=== PATIENT | female | born 1990 | race Caucasian/White ===

== ENCOUNTER 2018-07-10 06:34 | Outpatient (CLI) | payer OTHER | END 2018-07-10 06:35 | disposition home or self-care (01) | LOC: BICULT 06:34 | PROVIDERS: ATTEND Specialist | DX: Z01.411 Encounter for gynecological examination (general) (routine) with abnormal findings (principal); O03.9 Complete or unspecified spontaneous abortion without complication | CPT/HCPCS: 76856; 93976 ==

== ENCOUNTER 2019-12-30 14:41 | Observation (INO) | payer OTHER, SELFPAY ==
[2019-12-30 15:09] LABS: #Basophils 0.1 thou/uL (0.0-0.2); #Eosinphils 0.2 thou/uL (0.0-0.7); #Lymphocytes 2.9 thou/uL (1.20-3.40); #Monocytes 0.7 thou/uL (0.11-0.59); #Neutrophils 7.9 thou/uL (1.40-6.50); %Basophils 0.7 % (0.0-1.0); %Lymphocytes 24.6 % (21.0-51.0); %Monocytes 6.2 % (0.0-10.0); %Neutrophils 66.6 % (42.0-75.0); Hemoglobin 12.3 g/dL (12.0-16.0); Mean Corpuscular HGB CONC 34.3 g/dL (32.0-36.0); Mean Corpuscular Hemoglobin 32.3 pg (27.0-31.0); Mean Corpuscular Volume 94.1 fL (78.0-98.0); Mean Platelet Volume 7.8 fL (7.4-10.4); Platelet Count 257 thou/uL (130-400); RBC Distribution Width 10.5 % (11.5-14.5); Red Blood Cell (RBC) Count 3.82 mill/uL (4.20-5.40); White Blood Cell (WBC) Count 11.8 thou/uL (4.8-10.8)
[2019-12-30 15:33] LABS: ALT (SGPT) 35 U/L (8-55); AST (SGOT) 20 U/L (5-34); Alkaline Phosphatase 55 U/L (40-110); Anion Gap 11 mmol/L (10-20); BUN (Urea Nitrogen) 8 mg/dL (7.0-18.7); Bilirubin, Total 0.2 mg/dL (0.2-1.2); Calc. Creatinine Clearance 0 mL/min (70-130); Calcium 9.2 mg/dL (7.8-10.44); Carbon Dioxide 26 mmol/L (22-29); Chloride 104 mmol/L (98-107); Estimated GFR-MDRD Greater than 90; Globulin 2.4 g/dL (2.4-3.5); Glucose 74 mg/dL (70-105); Lipase 21 U/L (8-78); Potassium 3.8 mmol/L (3.5-5.1); Protein, Total 6.4 g/dL (6.0-8.3); Sodium 137 mmol/L (136-145)
[2019-12-30] MEDS ORDERED: Ondansetron PF 4 MG/2 ML Vial ONE (16:02)
[2019-12-30 16:18] LABS: Pregnancy Test - Urine (BHCG) POSITIVE (Negative); Pregu Control Background? CLEAR/WHITE (CLR/WHITE); Pregu Control Bar Appear? YES (CONTROL BAR); Specific Gravity 1.021 (1.002-1.036)
[2019-12-30 16:21] LABS: Bacteria/HPF None Seen HPF (None Seen); Bilirubin Negative (Negative); Blood, Urine Negative (Negative); Clarity Clear (Clear); Glucose, Urine (Dipstick) Normal (Negative); Leukocyte 75 Leu/uL (Negative); Nitrite Negative (Negative); Protein, Urine (Dipstick) Negative (Neg-Trace); RBC/HPF 0-3 HPF (0-3)
--- NOTE | 2019-12-30 16:21 | ULT ---
Sonogram right upper quadrant HISTORY: Right upper quadrant pain. FINDINGS: Echogenic stones in the dependent portion the gallbladder lumen. Gallbladder is incompletel y distended. No gallbladder wall thickening or pericholecystic fluid. Common duct is 0.4 cm. Liver unremarkable without focal mass or intrahepatic biliary dilatation. No free fluid. IMPRESSION: Cholelithiasis. No evidence of acute biliary obstruction.
[2019-12-30] MEDS ORDERED: Morphine 4 MG/ML VIAL ONE ×2 (17:25→19:38)
[2019-12-30] MEDS ORDERED: Ondansetron ODT 4 MG TAB SL PRN (21:21)
[2019-12-30] MEDS ORDERED: Ondansetron PF 4 MG/2 ML Vial IVP PRN (21:21)
[2019-12-30] MEDS ORDERED: Sodium Chloride 0.9% 1,000 ML IV SCH (21:21)
[2019-12-30] MEDS: Morphine 4 MG/ML VIAL SLOW IVP PRN (22:20)
[2019-12-31] MEDS: Morphine 4 MG/ML VIAL SLOW IVP PRN ×5 (00:16→08:05)
--- NOTE | 2019-12-31 00:26 | CON ---
DATE OF CONSULTATION: 12/30/2019 HISTORY OF PRESENT ILLNESS: The patient is a 29-year-old G3, P2 female with an intrauterine approximately 16 weeks gestation, presenting to the emergency room with right upper quadrant pain. The patient has a known diagnosis of gallstones. Given her presentation today, decision was made by General Surgery to remove her gallbladder tomorrow morning. The patient denies she has had any complications with this thus far apart from this abdominal pain since October. She denies any vaginal bleeding, any uterine contractions, leakage of fluid. PAST MEDICAL HISTORY: Negative. PAST SURGICAL HISTORY: She has had 2 prior C-sections and she has had her appendix removed. She has had some leg surgery. ALLERGIES: CODEINE. SOCIAL HISTORY: Denies drug, alcohol, or tobacco use. CURRENT MEDICATIONS: She takes: 1. Zofran p.r.n. 2. Tylenol. 3. vitamins. BLOOD TYPE: The patient reports is O-positive. REVIEW OF SYSTEMS: Per HPI. PHYSICAL EXAMINATION: VITAL SIGNS: Blood pressure is 107/59, temperature 98.4, pulse of 84, respiratory rate of 16, saturating 99% on room air. GENERAL: She appears to be in no acute distress. She is alert, oriented, cooperative, and pleasant to interact with. ABDOMEN: Soft, nontender. EXTREMITIES: Nontender and nonedematous. heart tracing reported. heart tones 146. LABORATORY DATA: Labs showed white count of 11.8, hemoglobin 12.3, hematocrit 35.9, and platelets of 257,000. AST of 20, ALT of 35, T bilirubin 0.2, lipase of 21, potassium 3.8. ASSESSMENT AND PLAN: The patient is a 29-year-old female with an intrauterine approximately 16 weeks gestation with documented gallstones that have given her significant problems over the last several weeks. The patient has been evaluated by General Surgery, has plans to take her in the morning for laparoscopic removal of the gallbladder. We did discuss with the patient that generally speaking the second trimester is the best time for abdominal surgery to occur should it be necessary, that the risks to the fetus is very low. Plan is to get heart tones before and after surgery and did stress that any of the risks associated with surgery in general that have been discussed by Dr. Gifford and the presence of an enlarged uterus may make potential complications more possible though given the mass effect of the uterus and displacement of other organs. The patient has expressed understanding and desires to proceed with surgical path, which Dr. Gifford will be managing. We discussed the anesthesia and is generally safe for . Given a routine surgical series of events tomorrow, the patient likely will be discharged home tomorrow and will be asked to follow up with her primary OB, Dr. Balderas, as scheduled. Job ID: [id number]
[2019-12-31] MEDS ORDERED: Ondansetron PF 4 MG/2 ML Vial SLOW IVP PRN (06:24)
[2019-12-31 08:08] LABS: ALT (SGPT) 40 U/L (8-55); AST (SGOT) 27 U/L (5-34); Albumin 3.7 g/dL (3.5-5.0); Alkaline Phosphatase 48 U/L (40-110); Anion Gap 11 mmol/L (10-20); BUN (Urea Nitrogen) 7 mg/dL (7.0-18.7); Bilirubin, Total Less than 0.2 mg/dL (0.2-1.2); Calc. Creatinine Clearance 167 mL/min (70-130); Calcium 8.9 mg/dL (7.8-10.44); Carbon Dioxide 21 mmol/L (22-29); Chloride 108 mmol/L (98-107); Estimated GFR-MDRD Greater than 90; Globulin 2.8 g/dL (2.4-3.5); Glucose 77 mg/dL (70-105); Lipase 11 U/L (8-78); Potassium 3.9 mmol/L (3.5-5.1); Protein, Total 6.5 g/dL (6.0-8.3); Sodium 136 mmol/L (136-145)
[2019-12-31] MEDS ORDERED: Morphine 4 MG/ML VIAL SLOW IVP PRN (08:51)
[2019-12-31] MEDS ORDERED: traMADol HCl 50 MG TAB PO PRN ×2 (08:51)
[2019-12-31] MEDS ORDERED: Acetaminophen 325 MG TAB PO PRN ×2 (08:51)
[2019-12-31] MEDS ORDERED: Morphine 2 MG/ML SYRINGE SLOW IVP PRN (08:51)
[2019-12-31] MEDS ORDERED: HYDROcodone/Acetaminophen 5/325 mg Tablet PO PRN ×2 (08:52)
[2019-12-31] MEDS ORDERED: CEFAZOLIN 2 GM in Premix Bag 1 BAG IVPB SCH (09:00)
[2019-12-31] MEDS ORDERED: D5 1/2 NS w/20 mEq KCL 1,000 ML IV SCH (09:00)
--- NOTE | 2019-12-31 09:11 | HP ---
CHIEF COMPLAINT: Abdominal pain. HISTORY OF PRESENT ILLNESS: Ms. Obrien is a 29-year-old woman who is 16 weeks , who has been having right upper quadrant abdominal pain and nausea since October. She was diagnosed with gallstones by her [facility] and an attempt at conservative management with low-fat diet was attempted. However, her pain has continued to worsen and got to the point last night where she had to come to the emergency room, even with IV pain medication, her pain did not resolve, so she has decided to proceed with laparoscopic cholecystectomy for symptomatic relief. Her has been progressing normally. She has not had any bleeding or contractions. She is a G3, P2, healthy young woman. PAST MEDICAL HISTORY: None. FAMILY HISTORY: Gallstones in her father. SOCIAL HISTORY: She does not smoke, drink, or use illicit drugs. PAST SURGICAL HISTORY: Laparoscopic appendectomy, , removal of a growth on her right lower leg, and tonsillectomy. REVIEW OF SYSTEMS: Ten system review of systems is negative except per HPI. She has not had any fevers, chills, jaundice, or icterus. She has an intolerance to codeine. OUTPATIENT MEDICATIONS: Include, 1. Zofran. 2. Tylenol. 3. vitamins. PHYSICAL EXAMINATION: VITAL SIGNS: Temperature 98.9, heart rate 71, respirations 20, 99% saturated on room air, blood pressure 96/59. GENERAL: Reveals a healthy young woman, in no acute distress. She is not jaundiced or icteric. She is not flushed or toxic. HEENT: Unremarkable. NECK: Supple without lymphadenopathy or thyroid nodules. HEART: Regular in its rate and rhythm without murmurs, rubs, or gallops. LUNGS: Clear to auscultation bilaterally. ABDOMEN: Soft and gravid. Her uterus is palpable below the umbilicus. She has healed laparoscopic incisions and Pfannenstiel incision. She is tender to palpation in the right upper quadrant greater than epigastrium, otherwise nontender to palpation. No rigidity, rebound, or guarding. No palpable mass, hernias. EXTREMITIES: Warm and well perfused without edema. NEURO: No focal deficits. PSYCHIATRIC: Alert, oriented, and appropriate. LABORATORY DATA: White count is 11.8, hematocrit 35, platelets 257. Electrolytes are unremarkable. LFTs and lipase are normal. Ultrasound images of the gallbladder revealed cholelithiasis with a normal caliber bile duct and no gallbladder wall thickening or pericholecystic fluid. ASSESSMENT: Cholelithiasis and chronic cholecystitis with worsening symptoms. The patient is in her second trimester and does not feel that she will be able to tolerate her symptoms for the remainder of her . I explained laparoscopic cholecystectomy is generally considered to be safe in the second trimester and I have recommended that we proceed. Inherent risks of surgery include, but are not limited to, bleeding, infection, risks of anesthesia, damage to nearby structures including bowel, bile duct, blood vessels, and uterus and miscarriage. These risks are all very small. However, the patient and her understand and accept these risks and wished to proceed. Dr. Lozada of [facility] has seen the patient and heart tones will be checked before and after the surgery. All of her questions were answered. Antibiotics will be ordered on-call to the operating room. Job ID: [id number]
[2019-12-31] MEDS ORDERED: SUGAMMADEX SODIUM 200 MG/2 ML VIAL ONE (09:46)
[2019-12-31] MEDS ORDERED: Fentanyl 100 MCG/2 ML VIAL ONE ×4 (09:46→12:12)
[2019-12-31] MEDS ORDERED: Bupivacaine 0.25% HCL 30 ML VIAL ONE (10:13)
[2019-12-31] MEDS ORDERED: Lidocaine 1% w/Epinephrine 1:100K 20 ML VIAL ONE (10:13)
--- NOTE | 2019-12-31 10:34 | PDOC.OP ---
Operative Note - Operative Note Operative Note: DATE OF PROCEDURE: 12/31/2019 PROCEDURES: Laparoscopic cholecystectomy. SURGEON: Margaret Gifford M.D. PREOPERATIVE DIAGNOSIS: Cholelithiasis, cholecystitis POSTOPERATIVE DIAGNOSIS: Cholelithiasis, cholecystitis FINDINGS: Distended gallbladder with large stone. Benign appearing liver mass medial to gallbladder bed. HISTORY: Patient with 16 week and symptoms of biliary colic failing conservative management. Laparoscopic cholecystectomy was recommended for symptomatic relief. Preoperative LFTs were normal and bile duct was normal caliber on preoperative imaging. PROCEDURE: After informed consent was obtained and appropriate preoperative antibiotics were administered, the patient was taken to the operating room and placed in the supine position and general endotracheal anesthesia was administered. The stomach was decompressed with an OG tube and the abdomen was prepped and draped in standard sterile fashion. Local anesthesia was infused to the skin and subcutaneous tissues at the umbilical level. A transverse skin incision was made. The fascia was elevated and incised and stay sutures placed and the peritoneum grasped, elevated and incised under direct vision. A 5 cm trocar was placed and carbon dioxide insufflated to a pressure of 15 which the patient tolerated well. The abdominal cavity was carefully examined. There was no evidence of trocar injury. Local anesthesia was infused to the skin and subcutaneous tissues at the epigastric, right upper quadrant, and right lateral abdominal sites and trocars were placed under direct vision of the laparoscope. The fundus of the gallbladder was grasped and retracted superiorly. The infundibulum was grasped and retracted laterally. The serosa was stripped inferiorly at the level of the neck of the gallbladder exposing the cystic duct and artery which were traced clearly to their insertion in the gallbladder. Critical view of safety was obtained and the cystic duct and artery were clipped and divided between clips. The gallbladder was then dissected free of the gallbladder bed using hook electrocautery. Prior to complete removal of the gallbladder from the gallbladder bed, the area of the cystic duct and artery stumps was examined. The clips were in good position completely across these structures and there was no bleeding and no leakage of bile. The gallbladder was then placed into an EndoCatch bag and drawn out through the epigastric incision after crushing and removing a large stone. The epigastric trocar was replaced and the operative site easily irrigated to clear. The patient was incidentally noted to have a small, benign appearing mass on the underside of the liver between the gallbladder bed and the falciform ligament, which was photographed but not biopsied due to bleeding risk. The epigastric trocar was removed and the fascia reappoximated under direct laparoscopic vision with a 0 Vicryl suture on a GraNee needle in a [id number] manner with excellent technical result. The camera was moved to the epigastric position and the fascia at the umbilicus closed with 0 Vicryl on a GraNee needle under direct laparoscopic vision with excellent result. The stay sutures were secured over this. The right upper quadrant and right lateral abdominal trocars were removed and hemostasis verified. Carbon dioxide gas was allowed to desufflate through the epigastric trocar which was then removed. The skin incisions were closed with 4-0 subcuticular Monocryl sutures and Dermabond dressings were placed. The patient was extubated and taken to the recovery room in good condition. There were no complications. ESTIMATED BLOOD LOSS: Minimal. SPECIMEN : Gallbladder and contents.
[2019-12-31] MEDS ORDERED: Rocuronium Bromide 10 MG/ML (10ML VIAL) ONE (10:45)
[2019-12-31] MEDS ORDERED: Lidocaine 1% PF 5 ML VIAL ONE (10:45)
[2019-12-31] MEDS ORDERED: Glycopyrrolate 0.2 MG/ML 5 ML SYRINGE ONE (10:45)
[2019-12-31] MEDS ORDERED: EPHEDRINE 25 MG/5 ML SYRINGE ONE (10:45)
[2019-12-31] MEDS ORDERED: Dexamethasone 20 MG/5 ML VIAL ONE (10:45)
[2019-12-31] MEDS ORDERED: Ondansetron PF 4 MG/2 ML Vial ONE (10:45)
[2019-12-31] MEDS ORDERED: PROPOFOL 200 MG/20 ML VIAL ONE (10:45)
[2019-12-31] MEDS ORDERED: diphenhydrAMINE 50 MG/ML VIAL ONE ×2 (10:45→12:24)
[2019-12-31] MEDS ORDERED: Promethazine HCl 25 MG/ML VIAL IM PRN (12:22)
[2019-12-31] MEDS ORDERED: Promethazine HCl 25 MG/ML VIAL SLOW IVP PRN (12:22)
[2019-12-31] MEDS ORDERED: Ondansetron HCl/PF 4 MG/2 ML Vial IVP PRN (12:22)
[2019-12-31] MEDS ORDERED: Morphine 4 MG/ML VIAL ONE (12:35)
[2019-12-31 13:09] VITALS: TEMP 97.5
[2019-12-31 14:11] VITALS: BP 105/57
[2019-12-31] MEDS ORDERED: FLU VACC QS2019-20(6MOS UP)/PF 60 MCG/0.5 ML SYRINGE IM ONE (21:00)
== END 2019-12-31 14:48 | disposition home or self-care (01) ==
LOC: ERS 14:41 → 3SE 20:34
PROVIDERS: ADMIT Surgery; ATTEND Surgery
PROC: 0FT44ZZ Resection of Gallbladder, Percutaneous Endoscopic Approach (ICD-10-PCS; principal; 2019-12-31)
DX: O99.613 Diseases of the digestive system complicating pregnancy, third trimester (principal); K80.10 Calculus of gallbladder with chronic cholecystitis without obstruction; O34.219 Maternal care for unspecified type scar from previous cesarean delivery; Z3A.16 16 weeks gestation of pregnancy; Z79.899 Other long term (current) drug therapy; Z88.5 Allergy status to narcotic agent
CPT/HCPCS: 36415; 76705; 80053; 81003; 81015; 81025; 83690; 85025; 88304; 96361; 96372; 96374; 96375; 96376; G0378; J0500; J0690; J1100; J1200; J2001; J2270; J2405; J2704; J3010; S0020

== ENCOUNTER 2020-03-10 06:37 | Observation (INO) | payer OTHER ==
[2020-03-10] MEDS ORDERED: Magnesium Sulfate 20 gm/500 ml 20 GM/500 ML BAG ONE (06:44)
[2020-03-10] MEDS ORDERED: Ondansetron PF 4 MG/2 ML Vial ONE (06:51)
[2020-03-10] MEDS ORDERED: hydrALAZINE 20 MG/ML VIAL SLOW IVP PRN ×2 (07:28)
[2020-03-10] MEDS ORDERED: Lactated Ringer's 1,000 ML IV SCH (07:30)
[2020-03-10] MEDS: Betamet Acet/Betamet Na Ph 30 MG/5 ML VIAL IM SCH (07:30)
[2020-03-10] MEDS ORDERED: Promethazine HCl 25 MG in Sodium Chloride 0.9% 50 ML IVPB PRN (07:31)
[2020-03-10] MEDS ORDERED: Calcium Gluconate 4.6 MEQ in Sodium Chloride 0.9% 100 ML IVPB PRN (07:36)
[2020-03-10] MEDS ORDERED: Magnesium Sulfate 20 gm/500 ml 20 GM/500 ML BAG IVPB SCH (07:45)
[2020-03-10] MEDS ORDERED: Magnesium Sulfate 20 GM/WATER 500 ML BAG IVPB SCH (07:45)
[2020-03-10] MEDS ORDERED: Magnesium Sulfate 4 GM in Sodium Chloride 0.9% 250 ML 250 ML IVPB SCH (07:45)
[2020-03-10] MEDS ORDERED: Iopamidol 300 61% 100 ML VIAL FS ONE (08:24)
[2020-03-10 08:29] LABS: Hemoglobin 12.1 g/dL (12.0-16.0); Mean Corpuscular Volume 94.3 fL (78.0-98.0); Mean Platelet Volume 8.9 fL (7.4-10.4); Platelet Count 209 thou/uL (130-400); RBC Distribution Width 10.6 % (11.5-14.5); Red Blood Cell (RBC) Count 3.67 mill/uL (4.20-5.40); White Blood Cell (WBC) Count 16.4 thou/uL (4.8-10.8)
[2020-03-10 08:51] LABS: INR-International Normal Ratio 0.9; PTT 22.3 SEC (22.9-36.1); Prothrombin Time 12.3 SEC (12.0-14.7)
[2020-03-10 09:08] LABS: Syphilis Antibody Nonreactive (Nonreactive); Syphilis Antibody Index 0.03 S/CO (<1.00 Non-Reactive)
[2020-03-10] MEDS: Butorphanol Tartrate 1 MG/ML VIAL SLOW IVP PRN ×2 (09:13→09:39)
[2020-03-10 09:15] LABS: HBSAg Index 0.18 S/CO (0-0.99); Hep B Surf Ag Non-Reactive S/CO (NonReactive)
[2020-03-10 09:20] LABS: Bilirubin Negative (Negative); Blood, Urine 2+ (Negative); Clarity Clear (Clear); Glucose, Urine (Dipstick) Normal (Negative); Leukocyte 250 Leu/uL (Negative); Mucous/LPF 1+ LPF (<2+); Nitrite Negative (Negative); Protein, Urine (Dipstick) 20 mg/dL (Neg-Trace); RBC/HPF Greater than 50 HPF (0-3); Squamous Epithelial 0-3 HPF (0-3); Urobilinogen 3 mg/dL (Less than 2)
[2020-03-10 09:25] LABS: Bacteria/HPF None Seen HPF (None Seen)
[2020-03-10 09:27] LABS: Amphetamine Not Detected (NotDetected); Barbiturates Screen Not Detected (NotDetected); Benzodiazepine Screen Not Detected (NotDetected); Cocaine Metabolite Screen Not Detected (NotDetected); Medtox Control Line Valid? VALID (VALID); Medtox Reader # READER 1; Methadone Not Detected (NotDetected); Methamphetamine Not Detected (NotDetected); Opiate Screen Not Detected (NotDetected); Oxycodone Screen Not Detected (NotDetected); Phencyclidine (PCP) Not Detected (NotDetected); THC/Cannabinoid Screen Not Detected (NotDetected); Tricyclic Screen Not Detected (NotDetected)
--- NOTE | 2020-03-10 09:28 | HP ---
PRIMARY CLINICAL NURSING MANAGER: Karie Balderas MD CHIEF COMPLAINT: Left lower quadrant pain. HISTORY OF PRESENT ILLNESS: The patient is a 29-year-old G3, P2 female with an intrauterine at 26 weeks and 3 days by EMS for acute onset severe left lower quadrant pain. The patient for about 15 minutes had unrelenting pain. She described as sharp with having severe pressure in her bottom. She was able to stay still enough for us to get heart tones initially and was able to see the baby had heart tones in the 130s. The patient reports that it began at about 5 o'clock and woke her up from her sleep. She denies any similar pains previous to this during this . She reports she had a gallbladder removed about a month ago and had an excision of a mole, also removed recently. The patient reports severe constipation and has been having problems of nausea with this . The patient denies fever, fall, headache, chest pain, shortness of breath, any new rashes, hip problems, knee problems, muscle weakness, vaginal bleeding or leakage of fluid. PAST MEDICAL HISTORY: Negative. PAST SURGICAL HISTORY: She has had 2 prior C-sections. Her gallbladder removed. She also at her previous visit reports she had appendix removed and has had surgery on her leg. ALLERGIES: CODEINE. SOCIAL HISTORY: Denies drug, alcohol, or tobacco use; however, the patient has had some issues with tramadol being prescribed at multiple locations by multiple providers and has currently been told that she can only get this prescribed by one provider due to recent surgical and other issues and currently denies being on tramadol. Blood type at a previous admission, O positive. REVIEW OF SYSTEMS: Per HPI. OB LABORATORY DATA: Unavailable. PHYSICAL EXAMINATION: VITAL SIGNS: On arrival, blood pressure 126/77, heart rate of 99, respiratory rate of 20. GENERAL: She on my initial arrival was writhing, unable to sit still. She was going from standing to sitting to rolling due to the pain on her left side. The patient was given 50 of Demerol and 25 of Phenergan, which was helpful. The patient's pain is primarily in her left lower quadrant, though she does report some tenderness throughout her abdomen. We were unable to palpate any significant contractions. CERVIX: Cervix is closed and thick and high. EXTREMITIES: Nontender, nonedematous. HEART: Regular. LUNGS: Clear. heart tracing shows the fetus with a baseline in the 130s with minimal to moderate long-term variability, no accelerations, no decelerations. On tocometer, we do not see any contraction pattern. On bedside ultrasound, there appears to me a retroplacental clot in the lower left bleeding edge that appears to be developing and growing over the two views that I had one with the bedside ultrasound p.r.n. Labor and Delivery, and the second with a formal ultrasound consult. On the second view, it appears to be now extending behind the amnion toward the cervix anteriorly and then superiorly along the edge of the placenta with a small portion appearing to protrude behind the body of the placenta. There is no blood flow in this area. ASSESSMENT AND PLAN: The patient is a 29-year-old G3, P2 female with an intrauterine at 26 weeks and 3 days, who I have admitted to the hospital for concerns of abruption. Fetus is stable at the moment. We have put her on magnesium for neuro protection. She has a 4 g bolus with 2 g an hour. She has also been given steroids for lung maturity. I have typed and crossed her 2 units and have a coagulation profile pending including a KB stain and fibrinogen. Her primary OB, Dr. Balderas has been updated, who is taking over care. Given her history, she also has a drug screen pending. However, she has received Demerol prior to that. The patient at this time is much more comfortable in the bed and is cooperative. Job ID: [id number]
--- NOTE | 2020-03-10 10:06 | ULT ---
LIMITED OB ULTRASOUND: HISTORY: Possible placental abruption. No vaginal bleeding. Pelvic pain and abdominal pain. FINDINGS: A single live intrauterine gestation is seen with measurements corresponding to an estimated gestatio nal age of 27 weeks 1 day and MAURICIO at 06/08/2020. The estimated weight measures 1064 gm (2 pound s 6 ounces). This corresponds to 90% by Hadlock criteria. measurements are as follows: BPD 6.56 cm, 26 weeks 3 days HC 25.17 cm, 27 weeks 2 days AC 23.54 cm, 27 weeks 6 days FL 4.98 cm, 26 weeks 6 days heart rate measures 133 b.p.m. JANEY measures 12.4 cm. Placenta is anteriorly located without e vidence of placenta previa. No retroperitoneal hematoma is seen. IMPRESSION: Single live intrauterine of 27 weeks 1 day and estimated date of delivery at 06/08/2020. POS: MZA
[2020-03-10] MEDS ORDERED: Morphine 4 MG/ML VIAL SLOW IVP SCH (10:15)
--- NOTE | 2020-03-10 10:21 | PDOC.EVN ---
Event Note - Event Note Event Note: Formal obstetrical ultrasound shows no retroplacental hematoma. Normal amniotic fluid. Vertex. Coagulation studies are normal-Fibrinogen is 500+ and reassuring for no occult abruption like bleed. No vaginal bleeding. FHT's remain reassuring at 130's. No deceleration. TOCO with no regular contractions or hypertonus. Cath UA with rbc's and wbc's. suggestive of uti. Renal u/s ordered to look for high grade hydronephrosis as etiology for pain...Mild left hydro noted. Moderate right sided. Urine culture sent. Ceftriaxone will be started. Will change to morphine for pain control since patient states this has worked better for her in the past. Stop magnesium for neuroprotection since concern for abruption much less now due to recent lab results, ultrasound and clinical findings...
--- NOTE | 2020-03-10 11:22 | ULT ---
Exam: Bilateral renal ultrasound HISTORY: patient. Pain. Evaluate for renal calculi. Left-sided pain. 27 weeks gestation. COMPARISON: None FINDINGS: Limitations: Patient was in a considerable amount of pain. Unable to keep still, limiting evaluation lie: Vertex Right kidney: Normal cortical echotexture. Mild to moderate hydronephrosis Right kidney measurements: 4.6 x 11.5 x 5.3 cm. Left kidney: Normal cortical echotexture. No hydronephrosis. Questionable left pelvic dilatation with out calyceal dilatation. Left kidney measurements 6.4 x 11.8 x 6.0 cm. Urinary bladder: Normal mucosa. Neither ureteral jet is appreciated at this time IMPRESSION: 1. Mild to moderate right-sided hydronephrosis. 2. Neither ureteral jet isn't appreciated at this time.
[2020-03-10] MEDS: cefTRIAXone\\ROCEPHIN 2 GM in Sodium Chloride 0.9% 100 ML IVPB SCH (11:30)
[2020-03-10] MEDS ORDERED: Morphine 4 MG/ML VIAL SLOW IVP PRN (11:55)
--- NOTE | 2020-03-10 12:05 | PDOC.EVN ---
Event Note - Event Note Event Note: Still having llq pain requiring significant amounts of morphine. Will perform single shot ivp to better evaluate for possible ureteral obstruction.
[2020-03-10 12:29] LABS: ALT (SGPT) 10 U/L (8-55); AST (SGOT) 15 U/L (5-34); Albumin 3.6 g/dL (3.5-5.0); Alkaline Phosphatase 113 U/L (40-110); Anion Gap 16 mmol/L (10-20); BUN (Urea Nitrogen) 6 mg/dL (7.0-18.7); Bilirubin, Total 0.4 mg/dL (0.2-1.2); Calc. Creatinine Clearance 0 mL/min (70-130); Calcium 8.7 mg/dL (7.8-10.44); Carbon Dioxide 17 mmol/L (22-29); Chloride 107 mmol/L (98-107); Estimated GFR-MDRD Greater than 90; Globulin 3.4 g/dL (2.4-3.5); Glucose 95 mg/dL (70-105); Potassium 3.4 mmol/L (3.5-5.1); Sodium 137 mmol/L (136-145)
[2020-03-10] MEDS ORDERED: Morphine 4 MG/ML VIAL ONE ×2 (13:16→15:29)
--- NOTE | 2020-03-10 14:22 | RAD ---
Exam: IVP WITHOUT TOMOGRAMS: HISTORY: 27 week patient. Left flank pain. FINDINGS: Initial zig zag stitcher abdomen and pelvic radiograph demonstrate a single fetus in a transverse presentation, head to the maternal left. Cholecystomy clips are identified. There is a punctate 1-2 mm calculus in the left hemipelvis which is nonspecific. On the 10 minute images, there is enhancement of both kidneys. There is contrast opacifying a moderat e to severely dilated right renal pelvis and intrarenal collecting system. There is no evidence of contrast in the left intrarenal collecting system. On the 20 minute images, contrast opacifies a moderate to severely distended right intrarenal and ext rarenal collecting system. There continues to be lack of contrast in the left intra and extrarenal collecting system. IMPRESSION: 1. Moderate to severe right-sided hydronephrosis and hydroureter which is presumed to be due to lie. 2. Persistent lack of excretion of contrast into the left intra and extrarenal collecting system, imp lying a high-grade obstruction. The exact level is uncertain. The a forementioned 2 mm calculus in the left hemipelvis is not felt to be the exact etiology. Retrograde opacification may be beneficial. Results study discussed with Dr. Balderas on 03/10/2020 at 2:22 PM. CODE CR. Transcribed Date/Time: 03/10/2020 3:12 PM
[2020-03-10] MEDS ORDERED: Ondansetron PF 4 MG/2 ML Vial IVP PRN (14:57)
[2020-03-10] MEDS ORDERED: Naloxone HCl 0.4 mg/ml Vial IV PRN (14:57)
[2020-03-10] MEDS ORDERED: HYDROmorphone 10 mg/100 ml CADD IVPB PRN (14:57)
[2020-03-10] MEDS ORDERED: Zolpidem Tartrate 5 MG TAB PO PRN (14:57)
[2020-03-10] MEDS ORDERED: Promethazine HCl 25 MG/ML VIAL IM PRN (14:57)
[2020-03-10] MEDS ORDERED: diphenhydrAMINE 50 MG/ML VIAL IVP PRN (14:57)
[2020-03-10] MEDS ORDERED: diphenhydrAMINE 25 MG CAP PO PRN (14:57)
[2020-03-10] MEDS ORDERED: diphenhydrAMINE 50 MG/ML VIAL IM PRN (14:57)
--- NOTE | 2020-03-10 14:57 | PDOC.EVN ---
Event Note - Event Note Event Note: Single shot IVP shows high grade obstruction on left kidney. Moderate to severe hydronephrosis on right. I called Dr Haywood , urologist production aide. He recommends follow up KUB q hour x 2 to help better determine area of blockage prior to him seeing patient. I will consult anesthesia service for additional help with pain management. Creatinine was 0.64 on cmp..Continue antibiotic coverage with rocephin. Will give one dose of flomax 0.4 mg to see if this helps ureter to relax and stone passage.
[2020-03-10] MEDS ORDERED: Tamsulosin HCl 0.4 MG CAP PO SCH (15:00)
[2020-03-10] MEDS ORDERED: Communication Order-Pharmacy FS SCH (15:00)
[2020-03-10] MEDS: Ondansetron PF 4 MG/2 ML Vial IVP PRN ×2 (15:00→22:35)
[2020-03-10] MEDS ORDERED: Betamet Acet/Betamet Na Ph 30 MG/5 ML VIAL ONE (15:29)
[2020-03-10] MEDS ORDERED: Butorphanol Tartrate 1 MG/ML VIAL ONE (15:29)
--- NOTE | 2020-03-10 17:22 | RAD ---
RADIOGRAPH ABDOMEN 1 VIEW: 03/10/20 at 3:28 p.m. HISTORY: 29-year-old female with left obstructive uropathy, sudden onset severe left flank pain. COMPARISON: Final intravenous urogram image of 03/10/2020 at 2 p.m.. FINDINGS: This approximately two hour delayed KUB finally demonstrates faint contrast material excreted into mo derately dilated left renal collecting system and moderately dilated left ureter. The contrast is vis ualized in the distal left ureter in the pelvis, but the most distal portion and the UVJ are obscured by dense excreted contrast material in the urinary bladder. The oil and gas superintendent view for the IVU earlier demon strates a tiny 2 mm calcification in the inferior portion of the left hemipelvis, which could be an o bstructing calculus at the UVJ. Again noted is the denser excreted contrast material in the moderately dilated right renal collecting system and right ureter. Cholecystectomy clips. Fetus in cephalic/transverse lie, with head overlapp ing upper sacrum at midline, and spine to maternal right lower quadrant. Normal bowel gas pattern. IMPRESSION: 1. Evidence for obstructive uropathy at the distal left ureter, possibly at ureterovesical junct ion, possibly by 2 mm calculus at the ureterovesical junctiuon. 2. Right sided hydronephrosis of . 3. Late second or early third trimester intrauterine gestation. POS: JIN
[2020-03-10 17:32] VITALS: BMI 25.0
[2020-03-10] MEDS ORDERED: Witch Hazel-Glycerin 1 EACH JAR TOP PRN (19:45)
[2020-03-10] MEDS ORDERED: Preparation H Ointment 57 gram tube TOP PRN (19:46)
--- NOTE | 2020-03-10 20:20 | CON ---
DATE OF CONSULTATION: 03/10/2020 REASON FOR CONSULTATION: Severe left-sided flank pain. HISTORY OF PRESENT ILLNESS: Ms. Ponce is a 29-year-old female who is currently approximately 26 weeks . She has had some mild left-sided flank pain until this morning when it became severe. She has since been on Labor and Delivery required large volumes of pain medication for managing the pain. Over the last 2 hours, it has improved. She underwent a renal ultrasound, that demonstrates a right-sided hydronephrosis, but no significant left-sided hydronephrosis. She then underwent a limited IVP, demonstrating delayed nephrogram on the left, consistent with obstruction. She denies any fevers or chills. She has had nausea and vomiting. She has a prior history of stone at the age of 10, which she passed spontaneously and did not require a surgical intervention. She denies any gross hematuria. PAST MEDICAL HISTORY: No chronic medical problems. PAST SURGICAL HISTORY: 1. Cholecystectomy during this . 2. Tonsillectomy and adenoidectomy. 3. Appendectomy. 4. Excision of a mole. ALLERGIES: TYLENOL NO. 3, IS NOT WELL-TOLERATED. SOCIAL HISTORY: Denies excessive alcohol use. Denies smoking. She has 2 other children at home. She is . REVIEW OF SYSTEMS: RESPIRATORY: No shortness of breath. CARDIOVASCULAR: No chest pain or palpitations. GASTROINTESTINAL: Denies chronic constipation or diarrhea. GENITOURINARY: Please see history of present illness. PHYSICAL EXAMINATION: GENERAL: She is awake and alert. She is in mild distress at this time. VITAL SIGNS: Temperature 97.9, blood pressure 138/82, pulse 82, respiratory rate 16. CHEST: Clear to auscultation. ABDOMEN: Gravid uterus. No peritoneal signs. EXTREMITIES: No edema. IMPRESSION: Left renal colic and delayed nephrogram, consistent with renal colic as the source of her symptoms. No obvious stone has been seen. Her pain was unbearable until recently. Now, although still present, it is quite manageable. We have discussed management options, which include observation with hopes of spontaneous passage of a presumed ureteral stone versus proceeding with ureteral stent placement. The pros and cons of these approaches have been discussed with her. She has opted to proceed with observation at present with the option to undergo ureteral stent placement if pain escalates. PLAN: 1. IV hydration. 2. Cystoscopy and left ureteral stent placement with possible left ureteroscopy if pain again becomes unmanageable. Job ID: [id number]
[2020-03-10] MEDS: Lactated Ringer's 1,000 ML IV SCH ×2 (22:45→23:38)
[2020-03-10] MEDS: L&D-Morphine 4 MG/ML VIAL IVP SCH ×2 (23:39→23:40)
[2020-03-11] MEDS: Lactated Ringer's 1,000 ML IV SCH ×2 (00:20→07:10)
--- NOTE | 2020-03-11 07:30 | PDOC.BPN ---
- Brief Progress Note S: Doing much better this am. Pain markedly improved. Urine strained with only sediment so far, no stones. Had some back pain overnight requiring ORE TRIMMER but otherwise, need for pain medication way down. Denies any other complaints today. O: AFVSS Gen - AAO, NAD Abd - soft, gravid, NTTP Ext - no edema A/P: 29 y/o at 26w4d with L sided kidney stone, clinically much improved. Will await recommendations from Dr. Cohn with Urology but anticipate d/c later today.
[2020-03-11] MEDS ORDERED: Prenatal Vitamin 1 TAB PO SCH (09:00)
[2020-03-11] MEDS: cefTRIAXone\\ROCEPHIN 2 GM in Sodium Chloride 0.9% 100 ML IVPB SCH (09:24)
[2020-03-11] MEDS: Betamet Acet/Betamet Na Ph 30 MG/5 ML VIAL IM SCH (09:26)
[2020-03-11] MEDS: Ondansetron PF 4 MG/2 ML Vial IVP PRN (09:41)
[2020-03-11 09:50] VITALS: BP 99/57; TEMP 98.6
--- NOTE | 2020-03-11 11:51 | RAD ---
EXAM: XR Abdomen 1 View/KUB PROVIDED CLINICAL HISTORY: Follow-up evaluation after IVP. COMPARISON: IVP on 03/10/2020 as well as one view abdomen on 03/10/2020 FINDINGS: Again noted is evidence of an intrauterine gestation in cephalic presentation. Surgical clips again o verlie the right upper quadrant. Previously noted contrast within the bilateral renal collecting systems, ureters, and in the urinary bladder is no longer visualized on this exam. A tiny calcificati on measuring approximately 2 mm was seen overlying the left hemipelvis on the prior exam. This calcification is not definitely delineated on this exam. No additional suspicious calcifications are identified. Small amount of retained fecal material is seen in the ascending and transverse colon. No other interval change. IMPRESSION: 1. Previously noted contrast in the bilateral renal collecting systems and urinary bladder is no long er visualized on this exam. 2. The previously measured tiny calcification overlying the left hemipelvis is not definitely delinea jayne on this exam. 3. Intrauterine gestation in cephalic presentation.
--- NOTE | 2020-03-11 12:53 | PDOC.EVN ---
Event Note - Event Note Event Note: OB structural iron worker: I have seen the patient at bedside. Her partner was at bedside. She feels better but occasionally still has pelvic pressure "like the stone is moving lower". Dr Ordaz has evaluated the follow up KUB from today and has cleared her for DC if pain os OK. I wrote for tramadol but I believe that requires a triplicate and I do not have any triplicates. I put in an order for tylenol #3 instaed as her "allergy' is that it makes her feel wierd but there is no HX of type 1-IV hypersensitivity by report.
--- NOTE | 2020-03-11 13:11 | PDOC.EVN ---
Event Note - Event Note Event Note: I called the pharmacy here: tramadol is not a triplicate (class IV). Dr Sullivan has written her the med.
--- NOTE | 2020-03-11 13:20 | DIS ---
DATE OF ADMISSION: 03/10/2020 DATE OF DISCHARGE: 03/11/2020 PRINCIPAL DIAGNOSES: 1. Left renal stone. 2. Renal colic. 3. Second trimester (approximately 26 weeks). HOSPITAL COURSE: In brief, this patient arrived with Dr. Lozada on-call. For full details, please see his H and P on March 10. In brief, she presented with severe abdominal pain that was first considered possible abruption; however, after clinical evaluation, the diagnosis was renal colic per intravenous pyelogram. Urology was called and helped to evaluate the patient. The patient did not require stenting during this admission, and on followup KUB, ordered by Urology, on 03/11, it seemed that the stone was having progressed down the tract. On 03/11/2020, I did evaluate the patient at the bedside, and as she felt much better, but still with some mild colic and pelvic pressure (thought to be related to the stone), the decision was made to follow her up as an outpatient. Dr. Haywood did evaluate the patient prior to discharge as well and felt that was a reasonable plan. Again, there was no indication for stenting at this time. She was placed on Rocephin prophylactically during her overnight stay, but she was not sent home on any additional antibiotics. She will follow up on Friday or Friday with her PAINTER [facility] provider, Dr. Balderas. Job ID: [id number]
--- NOTE | 2020-03-12 11:27 | PRG ---
DATE OF SERVICE: 03/11/2020 SUBJECTIVE: Pain is still present, although much improved. She has some oets-ip-iqnxvdch pressure sensation in the left kidney. She has some urinary frequency. She denies any fevers or chills. PHYSICAL EXAMINATION: VITAL SIGNS: Temperature 98.6, blood pressure 99/57, pulse 73, and O2 saturation 99% on room air. ABDOMEN: Soft and nontender. Gravid uterus. No peritoneal signs. DIAGNOSTIC STUDIES: KUB, complete drainage of the left kidney of all contrast. A questionable calcification seen on prior imaging is not clearly seen on this KUB. IMPRESSION: Possible passed left ureter stone. She certainly had obstruction of the left kidney and it seems now that it has resolved. Her pain is much improved. We discussed treatment options at this time. She would like to manage with outpatient medical therapy and avoid surgical therapy if possible. RECOMMENDATIONS: Okay for discharge from urologic standpoint. Job ID: [id number]
== END 2020-03-11 13:35 | disposition home health service (06) ==
LOC: L&D/OP 06:37 → INTOOBSV 07:26 → L&D 07:26 → 3SE 21:02
PROVIDERS: ADMIT Obstetrics & Gynecology; ATTEND Obstetrics & Gynecology
DX: O99.89 Other specified diseases and conditions complicating pregnancy, childbirth and the puerperium (principal); N13.2 Hydronephrosis with renal and ureteral calculous obstruction; Z3A.26 26 weeks gestation of pregnancy; Z88.5 Allergy status to narcotic agent; Z88.6 Allergy status to analgesic agent
CPT/HCPCS: 36415; 59025; 74018; 74410; 76770; 76815; 80053; 80306; 81003; 81015; 83735; 85027; 85384; 85460; 85610; 85730; 86780; 86850; 86900; 86901; 87086; 87340; 96365; 96372; 96375; 96376; 99285; G0378; J0595; J0696; J0702; J2175; J2270; J2405; J3475; J3490; Q9967

== ENCOUNTER 2020-05-10 01:24 | Day surgery (SDC) | payer OTHER ==
[2020-05-10 01:52] VITALS: BMI 29.2
[2020-05-10] MEDS ORDERED: hydrALAZINE 20 MG/ML VIAL SLOW IVP PRN (03:14)
--- NOTE | 2020-05-10 04:00 | PRG ---
DATE OF SERVICE: PRIMARY OB: Karie Balderas MD CHIEF COMPLAINT: Elevated blood pressures. HISTORY OF PRESENT ILLNESS: The patient is a 29-year-old G3, P2 female with an intrauterine at 35 weeks and 1 day gestation, presenting to Labor and Delivery with concerns of elevated blood pressures and visual changes. She reports that she was having severe range pressures with a wrist cuff at home up into the 160s systolic and 100s diastolic. Upon arrival, blood pressures have all been within normal limits. Testing of her cuff here did demonstrate severe range pressures as recorded by her cuff. Again, blood pressures here have been in the 100s to 134 over 60s to 86. Upon arrival to the room, the patient reports her biggest concern was her blood pressure being elevated and knowing that her blood pressures are within normal limits, the patient is comfortable going home and has no other complaints at this time. PAST MEDICAL HISTORY: Kidney stones in this . PAST SURGICAL HISTORY: She has had 2 prior C-sections. She has had a cholecystectomy earlier in this . Appendectomy and surgery on her leg. ALLERGIES: CODEINE-TYLENOL NO. 3. SOCIAL HISTORY: Denies drug, alcohol, or tobacco use. MEDICATIONS: Currently, on tramadol, under the care of Dr. Balderas for tooth pain. OB LABS: Unavailable at time of dictation. REVIEW OF SYSTEMS: Per HPI. PHYSICAL EXAMINATION: VITAL SIGNS: Vital signs during her stay here have been 104 to 134/58 to 86, heart rate in the 70s to 90s to low 100s, respiratory rate 20, and temperature 98.5. GENERAL: She appears to be in no acute distress. She is alert, oriented, cooperative, and pleasant to interact with. HEAD: Normocephalic and atraumatic. LUNGS: Clear to auscultation bilaterally. HEART: Has a regular rate and rhythm. ABDOMEN: Gravid, soft, nontender. EXTREMITIES: Nontender and nonedematous. She has 1+ DTRs. DIAGNOSTIC DATA: heart tracing shows a fetus with a baseline in the 130s with moderate long-term variability, positive 15 x 15 accelerations. Tocometer showing some irritability, but no consistent contraction pattern. ASSESSMENT AND PLAN: The patient is a 29-year-old multiparous female with an intrauterine at 35 weeks, coming in with concerns of elevated blood pressures at home; here, pressures have been all within normal limits, measured over the course of an hour and a half. The patient is being discharged home. She has an appointment on with her primary OB. Fetus has a category 1 tracing and reactive NST. Job ID: [id number]
== END 2020-05-10 03:10 | disposition home or self-care (01) ==
LOC: L&D/OP 01:24
PROVIDERS: ATTEND Obstetrics & Gynecology
DX: O99.89 Other specified diseases and conditions complicating pregnancy, childbirth and the puerperium (principal); R03.0 Elevated blood-pressure reading, without diagnosis of hypertension; H53.9 Unspecified visual disturbance; O34.219 Maternal care for unspecified type scar from previous cesarean delivery; Z3A.35 35 weeks gestation of pregnancy; Z88.5 Allergy status to narcotic agent
CPT/HCPCS: 59025; 99282

== ENCOUNTER 2020-05-25 08:59 | Inpatient (IN) | payer OTHER ==
[2020-05-25 09:46] VITALS: BMI 30.1
[2020-05-25] MEDS ORDERED: Azithromycin 500 MG in Sodium Chloride 0.9% 250 ML 250 ML IVPB SCH (09:47)
[2020-05-25] MEDS ORDERED: Ondansetron PF 4 MG/2 ML Vial IVP PRN ×2 (09:47→15:39)
[2020-05-25] MEDS ORDERED: CEFAZOLIN 2 GM in Premix Bag 1 BAG IVPB SCH (09:47)
[2020-05-25] MEDS ORDERED: Promethazine HCl 25 MG/ML VIAL IM PRN ×2 (09:47→15:39)
[2020-05-25] MEDS ORDERED: hydrALAZINE 20 MG/ML VIAL SLOW IVP PRN ×2 (09:47→12:21)
[2020-05-25] MEDS ORDERED: Bicitra 30 ML UDCUP PO SCH (09:47)
[2020-05-25] MEDS ORDERED: Lactated Ringer's 1,000 ML IV SCH ×2 (09:47)
[2020-05-25 10:02] LABS: Hemoglobin 10.9 g/dL (12.0-16.0); Mean Corpuscular HGB CONC 33.6 g/dL (32.0-36.0); Mean Corpuscular Hemoglobin 29.2 pg (27.0-31.0); Mean Corpuscular Volume 86.7 fL (78.0-98.0); Mean Platelet Volume 8.8 fL (7.4-10.4); Platelet Count 286 thou/uL (130-400); RBC Distribution Width 12.3 % (11.5-14.5); Red Blood Cell (RBC) Count 3.74 mill/uL (4.20-5.40); White Blood Cell (WBC) Count 12.7 thou/uL (4.8-10.8)
[2020-05-25 10:43] LABS: HBSAg Index 0.14 S/CO (0-0.99); Hep B Surf Ag Non-Reactive S/CO (NonReactive); Syphilis Antibody Nonreactive (Nonreactive); Syphilis Antibody Index 0.02 S/CO (<1.00 Non-Reactive)
[2020-05-25] MEDS ORDERED: diphenhydrAMINE 25 MG CAP PO PRN (12:21)
[2020-05-25] MEDS ORDERED: Bisacodyl 10 MG SUPP PR PRN (12:21)
[2020-05-25] MEDS ORDERED: Adacel (T-DAP) 0.5 ML SYRINGE IM ONE (12:21)
[2020-05-25] MEDS ORDERED: Acetaminophen 325 MG TAB PO PRN (12:21)
[2020-05-25] MEDS ORDERED: traMADol HCl 50 MG TAB PO PRN ×2 (12:23)
[2020-05-25] MEDS ORDERED: MORPHINE 5 MG/10 ML PF VIAL ONE (13:29)
[2020-05-25] MEDS ORDERED: PHENYLEPHRINE-NS 100 MCG/ML 10 ML SYRINGE ONE ×2 (13:30→14:56)
[2020-05-25] MEDS ORDERED: Oxytocin 10 UNITS/ML VIAL ONE ×3 (13:48→14:36)
[2020-05-25] MEDS ORDERED: Midazolam HCl 2 mg/2 ml Vial ONE (13:51)
[2020-05-25] MEDS ORDERED: Ibuprofen 800 MG TAB PO SCH (14:00)
[2020-05-25] MEDS ORDERED: Ondansetron PF 4 MG/2 ML Vial ONE (15:07)
[2020-05-25] MEDS ORDERED: Promethazine HCl 25 MG/ML VIAL ONE (15:12)
--- NOTE | 2020-05-25 15:12 | PDOC.OPDEL ---
OB Operative/Delivery Note Delivery Dr/Surgeon: Sherrie Assist: Daniel Pre-Delivery Diagnosis: other (early labor vaginal bleeding prior c/s x2) Procedure/Post Delivery Dx: repeat low transverse CS Weeks gestation: 37 Anesthesia: spinal - Findings A Sex: female Weight: 5 lb 15 oz - 1 min: 8 - 5 min: 9 - Additional Findings/Plan Placenta delivered: manual removal findings: low transverse hysterotomy without extension Estimated blood loss: 550ml Post delivery plan: routine recovery
[2020-05-25] MEDS ORDERED: Ketorolac Tromethamine 30 MG/ML VIAL IVP PRN (15:39)
[2020-05-25] MEDS ORDERED: Naloxone HCl 0.4 mg/ml Vial IV PRN (15:39)
[2020-05-25] MEDS ORDERED: L&D-Morphine 4 MG/ML VIAL SLOW IVP PRN (15:39)
[2020-05-25] MEDS ORDERED: Naloxone HCl 0.4 mg/ml Vial IVP PRN ×2 (15:39)
[2020-05-25] MEDS ORDERED: Promethazine HCl 25 MG SUPP PR PRN (15:39)
[2020-05-25] MEDS ORDERED: diphenhydrAMINE 50 MG/ML VIAL IVP PRN (15:39)
[2020-05-25] MEDS ORDERED: HYDROmorphone 2 MG/ML VIAL SLOW IVP PRN (15:39)
[2020-05-25] MEDS ORDERED: Ondansetron HCl/PF 4 MG/2 ML Vial IVP PRN (15:39)
[2020-05-25] MEDS ORDERED: Ketorolac Tromethamine 30 MG/ML VIAL IVP SCH (15:45)
[2020-05-25] MEDS ORDERED: Communication Order-Pharmacy FS SCH (15:45)
[2020-05-25] MEDS ORDERED: Meperidine HCl/PF 25 MG/ML VIAL ONE ×2 (15:53→16:52)
[2020-05-25] MEDS: Meperidine HCl/PF 25 MG/ML VIAL SLOW IVP PRN ×2 (15:56→16:57)
[2020-05-25] MEDS ORDERED: NS / Oxytocin 40 units/1000ml 0 ML ONE (17:01)
[2020-05-25] MEDS ORDERED: Morphine 4 MG/ML VIAL ONE (17:20)
--- NOTE | 2020-05-25 19:12 | OP ---
DATE OF PROCEDURE: 05/25/2020 PREOPERATIVE DIAGNOSES: 1. A 29-year-old white female, G3, P2, prior x2 with regular contractions. 2. Vaginal bleeding. 3. Early labor. POSTOPERATIVE DIAGNOSES: 1. A 29-year-old white female, G3, P2, prior x2 with regular contractions. 2. Vaginal bleeding. 3. Early labor. PROCEDURES PERFORMED: 1. Repeat low transverse section. 2. Lysis of adhesions. BENCH WORKER HOLLOW HANDLE SURGEON: Armando Sanchez MD with OB hospitalist service. ESTIMATED BLOOD LOSS: 550 mL. ANESTHESIA: Spinal block, requiring repeat spinal block due to inadequate anesthesia with first spinal. COMPLICATIONS: None. FINDINGS: 1. Vigorous female infant, Apgars 8 and 9. weight 5 pounds 5 ounces. Clear amniotic fluid noted. 2. The patient had uterine serosal adhesions to the upper abdominal wall, status post lysis of adhesions and repair. 3. Normal-appearing bilateral adnexa. 4. Clear urine present in Bealsey catheter postprocedure. DISPOSITION: Recovery room, stable. DESCRIPTION OF PROCEDURE: The patient previously received informed consent in regard to surgery. She was taken back to the operating room, where she received a spinal block. She was prepped and draped in usual sterile fashion. Initial spinal test noted her to have sensation below the umbilicus on both sides, and then she was undraped and repeat spinal was performed. Once the spinal was adequate, we placed her back in supine position, prepped and draped her. A Pfannenstiel incision was made down through the previous scar site. Fat was taken down to the fascia. Fascia was nicked in the midline. Fascial incision was extended bilaterally with curved Tinsley scissors. The rectus fascia was dissected superiorly and inferiorly off the rectus muscle bellies. The rectus muscle bellies were divided in midline. There was a serosal sort of adhesions mainly on the left anterior side, and this was carefully taken down layering, it actually appeared to be some of the uterine serosa in the upper midportion of the uterus above the previous hysterotomy site. Once this was taken down, the Dov O retractor was placed. We then took the bladder flap down further to enable a clear area for the hysterotomy. The hysterotomy was extended. The baby was delivered in the vertex presentation. Mouth and nares were bulb suctioned on the abdomen. The amniotic fluid was noted to be clear. Usual cord blood was obtained, and the cord was doubly clamped and cut, baby was handed to the pediatric nurses in attendance. Placenta was then manually extracted. The uterus was externalized and curetted of any remaining placental fragments with a dry laparotomy sponge. The serosal adhesions superior to the hysterotomy site were made hemostatic by continuing pressure with a moist lap sponge. We then closed the hysterotomy incision in running locking fashion with #1 Monocryl. We then placed Allis clamps just over the vertical tear of the serosa of the uterus and this approximated, then I ran a running locking 2-0 chromic suture incorporating some of the myometrium to aid with hemostasis. Hemostasis was confirmed. There were some areas of general ooze in certain places and this was made hemostatic by placing FloSeal and holding pressure for 3 minutes. We rechecked the hemostasis was confirmed. The uterus had been replaced back in the abdomen at this time. The Dov O retractor was then removed. We again inspected the hysterotomy site and hemostasis was confirmed. The muscle bellies were inspected and noted to be hemostatic prior to fascial closure. Fascia was closed with 0 PDS suture to suture x2 in a running continuous fashion. Subcutaneous tissue was irrigated, noted to be hemostatic prior to skin approximation with a 4-0 subcuticular suture with Dermabond. The surgery was terminated. No anesthetic or surgical complications occurred. Job ID: [id number]
[2020-05-25] MEDS ORDERED: Sodium Chloride 0.9% 10 ML ONE (19:19)
[2020-05-25] MEDS: Ibuprofen 800 MG TAB PO SCH (21:51)
[2020-05-26] MEDS ORDERED: Sodium Chloride 0.9% 30 ML ONE (03:00)
[2020-05-26] MEDS: Ibuprofen 800 MG TAB PO SCH ×3 (05:17→20:59)
[2020-05-26] MEDS ORDERED: traMADol HCl 50 MG TAB PO PRN (06:50)
[2020-05-26 07:14] LABS: Hemoglobin 10.4 g/dL (12.0-16.0); Mean Corpuscular HGB CONC 33.5 g/dL (32.0-36.0); Mean Corpuscular Hemoglobin 29.4 pg (27.0-31.0); Mean Corpuscular Volume 87.8 fL (78.0-98.0); Mean Platelet Volume 8.6 fL (7.4-10.4); Platelet Count 281 thou/uL (130-400); RBC Distribution Width 12.1 % (11.5-14.5); Red Blood Cell (RBC) Count 3.53 mill/uL (4.20-5.40); White Blood Cell (WBC) Count 13.1 thou/uL (4.8-10.8)
[2020-05-26] MEDS ORDERED: Acetaminophen 500 MG TAB PO PRN (07:33)
[2020-05-26] MEDS ORDERED: Prenatal Vitamin 1 TAB PO SCH (09:00)
[2020-05-26] MEDS: Simethicone Chewable 80 MG TAB PO PRN ×2 (09:12→20:59)
--- NOTE | 2020-05-26 09:31 | PDOC.PP ---
Post Progress Note Post Day #: 1 Subjective: Complains of pain and request IV morphine but has been seen on the unit ambulating without difficulty or without assistance. Pt refuses toradol. Eating well, voiding well, no other concerns. PO intake tolerated: yes Flatus: yes Ambulation: yes Vital Signs (12 hours) Temp Pulse Resp BP Pulse Ox 05/26/20 08:09 98.1 F 84 20 110/72 99 05/26/20 03:49 97.9 F 93 16 125/76 05/26/20 00:46 98.2 F 81 14 114/68 Weight Weight 170 lb - Physical Examination General: NAD Respiratory: non-labored breathing Abdominal: no distention Neurological: no gross focal deficits Psychiatric: A&Ox3 Result Diagrams: 05/26/20 07:02 Additional Labs: Post Labs Blood Type O POSITIVE 05/25/20 10:20 Hep Bs Antigen Non-Reactive S/CO (NonReactive) 05/25/20 09:50 (1) Status post repeat low transverse section Code(s): Z98.891 - HISTORY OF UTERINE SCAR FROM PREVIOUS SURGERY Status: Acute - Assessment/Plan POD1, history of regular tramadol use in , refusing toradol. Discussed with patient the benefit of oral medication use for pain control and that IV pain med use PRN will 24hours after delivery. Plan to transition to PO meds and today.
[2020-05-26] MEDS: traMADol HCl 50 MG TAB PO PRN ×3 (10:25→22:48)
[2020-05-26] MEDS ORDERED: Sodium Chloride 0.9% 10 ML ONE (12:07)
[2020-05-26] MEDS ORDERED: Ibuprofen 800 MG TAB PO SCH (14:00)
[2020-05-27] MEDS: Ibuprofen 800 MG TAB PO SCH (05:32)
[2020-05-27] MEDS: Simethicone Chewable 80 MG TAB PO PRN (05:32)
[2020-05-27] MEDS: traMADol HCl 50 MG TAB PO PRN (05:33)
--- NOTE | 2020-05-27 07:14 | PDOC.PP ---
Post Progress Note Subjective: Ready to gohome. baby doing well. Tramadol oral working for pain control with motrin. PO intake tolerated: yes Flatus: yes Ambulation: yes Vital Signs (12 hours) Temp Pulse Resp BP Pulse Ox 05/27/20 05:30 98.2 F 95 16 115/67 05/26/20 23:00 98.2 F 75 16 116/82 05/26/20 20:50 97.6 F 82 16 119/76 96 Weight Weight 170 lb - Physical Examination Abdominal: + bowel sounds, no distention, appropriately TTP Result Diagrams: 05/26/20 07:02 Additional Labs: Post Labs Blood Type O POSITIVE 05/25/20 10:20 Hep Bs Antigen Non-Reactive S/CO (NonReactive) 05/25/20 09:50 - Assessment/Plan Post op day #2. Doing well. Ready for discharge. Rx sent. F/u 6 weeks.
[2020-05-27 11:11] VITALS: BP 112/70; TEMP 97.9
== END 2020-05-27 10:45 | disposition home or self-care (01) | DRG 788 ==
LOC: L&D/OP 08:59 → L&D 09:48 → 3SW 18:22
PROVIDERS: ADMIT Obstetrics & Gynecology; ATTEND Obstetrics & Gynecology
PROC: 10D00Z1 Extraction of Products of Conception, Low, Open Approach (ICD-10-PCS; principal; 2020-05-26)
DX: O34.211 Maternal care for low transverse scar from previous cesarean delivery (principal); Z3A.37 37 weeks gestation of pregnancy; Z37.0 Single live birth
CPT/HCPCS: 36415; 51702; 85027; 86780; 86850; 86900; 86901; 87340; 90715; J0456; J0690; J1200; J2175; J2250; J2270; J2274; J2405; J2550; J2590; J7050

== ENCOUNTER 2021-05-10 21:47 | Emergency (ER) | payer OTHER ==
[2021-05-10 22:39] LABS: BHCG - Serum Negative (NEGATIVE); Pregs Control Background? CLEAR/WHITE (CLR/WHITE); Pregs Control Bar Appear? YES (CONTROL BAR)
[2021-05-10 22:40] LABS: #Basophils 0.1 thou/uL (0.0-0.2); #Eosinphils 1.4 thou/uL (0.0-0.7); #Lymphocytes 4.7 thou/uL (1.20-3.40); #Monocytes 0.7 thou/uL (0.11-0.59); %Basophils 0.8 % (0.0-1.0); %Eosinophils 10.1 % (0.0-10.0); %Lymphocytes 33.4 % (21.0-51.0); %Monocytes 5.3 % (0.0-10.0); %Neutrophils 50.4 % (42.0-75.0); Mean Corpuscular HGB CONC 34.8 g/dL (32.0-36.0); Mean Corpuscular Hemoglobin 32.8 pg (27.0-31.0); Mean Corpuscular Volume 94.3 fL (78.0-98.0); Mean Platelet Volume 8.5 fL (7.4-10.4); Platelet Count 239 thou/uL (130-400); RBC Distribution Width 11.2 % (11.5-14.5); Red Blood Cell (RBC) Count 4.59 mill/uL (4.20-5.40); White Blood Cell (WBC) Count 13.9 thou/uL (4.8-10.8)
[2021-05-10 22:46] LABS: Bacteria/HPF Rare-Few HPF (None Seen); Bilirubin Negative (Negative); Blood, Urine Trace (Negative); Clarity Clear (Clear); Glucose, Urine (Dipstick) Normal (Negative); Ketone, Urine Negative (Negative); Leukocyte 25 Leu/uL (Negative); Nitrite Negative (Negative); Protein, Urine (Dipstick) Negative (Neg-Trace); RBC/HPF 0-3 HPF (0-3); Specific Gravity, Urine 1.029 (1.002-1.036)
[2021-05-10 22:55] LABS: ALT (SGPT) 24 U/L (8-55); AST (SGOT) 15 U/L (5-34); Albumin 4.4 g/dL (3.5-5.0); Alkaline Phosphatase 78 U/L (40-110); Anion Gap 15 mmol/L (10-20); BUN (Urea Nitrogen) 14 mg/dL (7.0-18.7); Bilirubin, Total 0.3 mg/dL (0.2-1.2); Calc. Creatinine Clearance 0 mL/min (70-130); Calcium 9.5 mg/dL (7.8-10.44); Carbon Dioxide 21 mmol/L (22-29); Chloride 106 mmol/L (98-107); Globulin 3.1 g/dL (2.4-3.5); Glucose 97 mg/dL (70-105); Lipase 23 U/L (8-78); Potassium 3.9 mmol/L (3.5-5.1); Protein, Total 7.5 g/dL (6.0-8.3); Sodium 138 mmol/L (136-145)
[2021-05-10] MEDS ORDERED: Ketorolac Tromethamine 30 MG/ML VIAL ONE (23:00)
== END 2021-05-10 23:46 | disposition home or self-care (01) ==
LOC: ERS 21:47
DX: R10.31 Right lower quadrant pain (principal); F17.210 Nicotine dependence, cigarettes, uncomplicated
CPT/HCPCS: 36415; 80053; 81003; 81015; 83690; 84703; 85025; 87086; 96372; 99284; J1885

== ENCOUNTER 2023-05-09 16:06 | Emergency (ER) | payer OTHER ==
[2023-05-09] MEDS ORDERED: Ketorolac Tromethamine 30 MG/ML VIAL ONE (16:41)
[2023-05-09] MEDS ORDERED: Ondansetron PF 4 MG/2 ML Vial ONE ×2 (16:41→19:54)
[2023-05-09] MEDS ORDERED: Morphine 4 MG/ML VIAL ONE ×3 (16:41→19:53)
[2023-05-09 16:45] LABS: Bilirubin 1+ (Negative); Blood, Urine 3+ (Negative); CAUTI Indications for Culture Pelvic or flank pain; Glucose, Urine (Dipstick) Normal (Negative); Ketone, Urine Negative (Negative); Leukocyte 25 Leu/uL (Negative); Nitrite Negative (Negative); Protein, Urine (Dipstick) 100 mg/dL (Neg-Trace); RBC/HPF Greater than 50 HPF (0-3); Specific Gravity, Urine 1.033 (1.002-1.036); Squamous Epithelial 21-50 HPF (0-3); Urobilinogen Normal mg/dL (Less than 2); pH, Urine 5.5 (5.0-9.0)
[2023-05-09 16:46] LABS: Bacteria/HPF 1+ HPF (None Seen); Clarity Cloudy (Clear)
[2023-05-09 16:47] LABS: Pregnancy Test - Urine (BHCG) Negative (Negative); Pregu Control Background? CLEAR/WHITE (CLR/WHITE); Pregu Control Bar Appear? YES (CONTROL BAR); Specific Gravity 1.033 (1.002-1.036); Urine Culture Reflex Yes Yes
[2023-05-09 16:52] LABS: #Eosinphils 0.1 thou/uL (0.0-0.7); #Monocytes 0.6 thou/uL (0.11-0.59); #Neutrophils 14.2 thou/uL (1.40-6.50); %Basophils 0.2 % (0.0-1.0); %Eosinophils 0.7 % (0.0-10.0); %Lymphocytes 9.7 % (21.0-51.0); %Monocytes 3.8 % (0.0-10.0); Hemoglobin 13.7 g/dL (12.0-16.0); Mean Corpuscular HGB CONC 32.9 g/dL (32.0-36.0); Mean Corpuscular Hemoglobin 30.9 pg (27.0-31.0); Mean Corpuscular Volume 93.9 fl (78.0-98.0); Mean Platelet Volume 10.4 fL (7.4-10.4); Platelet Count 200 10x3/uL (130-400); RBC Distribution Width 12.3 % (11.5-14.5); Red Blood Cell (RBC) Count 4.43 mill/uL (4.20-5.40); White Blood Cell (WBC) Count 16.7 10x3/uL (4.8-10.8)
[2023-05-09 17:16] LABS: ALT (SGPT) 11 U/L (8-55); AST (SGOT) 16 U/L (5-34); Albumin 4.2 g/dL (3.5-5.0); Alkaline Phosphatase 74 U/L (40-110); Anion Gap 14 mmol/L (10-20); BUN (Urea Nitrogen) 13 mg/dL (7.0-18.7); Bilirubin, Total 0.3 mg/dL (0.2-1.2); Calc. Creatinine Clearance 0 mL/min (70-130); Calcium 8.6 mg/dL (7.8-10.44); Carbon Dioxide 18 mmol/L (22-29); Chloride 112 mmol/L (98-107); Estimated GFR 84; Globulin 2.8 g/dL (2.4-3.5); Glucose 97 mg/dL (70-105); Potassium 4.1 mmol/L (3.5-5.1); Sodium 140 mmol/L (136-145)
[2023-05-09] MEDS ORDERED: cefTRIAXone (ROCEPHIN) 2 GM VIAL ONE (17:34)
[2023-05-09] MEDS ORDERED: HYDROmorphone 0.5 MG/0.5 ML SYRINGE ONE (18:50)
== END 2023-05-09 20:27 | disposition home or self-care (01) ==
LOC: ERS 16:06
DX: N13.6 Pyonephrosis (principal); F17.210 Nicotine dependence, cigarettes, uncomplicated
CPT/HCPCS: 36415; 74176; 80053; 81001; 81025; 85025; 96361; 96365; 96374; 96375; 96376; J0696; J1170; J1885; J2270; J2405